=== PATIENT | male | born 2000 | race Two or more races ===

== ENCOUNTER 2019-04-06 21:14 | Emergency (ER) | payer OTHER ==
[~2019-04-06] VITALS: Ht 170.2 cm; Wt 59.0 kg
--- NOTE | 2019-04-06 21:25 | NUR ---
Pt to er bb [facility] and [employer] for anxiety s/p arrest. No immediate signs of distress noted. Pt vital signs stable. Patient is awake and alert to self, day, and place. pt to er bed.
[2019-04-06] MEDS ORDERED: ACETAMINOPHEN ES 500 MG TABLET ONE (22:17)
[2019-04-06] MEDS: ACETAMINOPHEN 325 MG TABLET PO ONE (22:26)
--- NOTE | 2019-04-06 22:26 | NUR ---
pt ok to discharge per Wale VARELA. Patient discharged in custody of [employer] in stable condition. Written and verbal after care instructions given. Patient verbalizes understanding of instruction.
[2019-04-06 23:04] VITALS: BP 118/72
== END 2019-04-06 23:04 ==
LOC: ER 21:16
DX: S09.8XXA Other specified injuries of head, initial encounter (principal); Y04.0XXA Assault by unarmed brawl or fight, initial encounter; Y93.89 Activity, other specified; Y92.89 Other specified places as the place of occurrence of the external cause; Y99.8 Other external cause status
CPT/HCPCS: 70450-TC